=== PATIENT | male | born 1950 | race Caucasian/White ===

== ENCOUNTER 2018-05-28 15:16 | Inpatient (IN) | payer OTHER ==
[~2018-05-28] VITALS: Ht 175.3 cm; Wt 105.2 kg
[2018-05-28 15:33] VITALS: BP 132/85
[2018-05-28] MEDS ORDERED: NEXIUM40 MG PO (15:38)
[2018-05-28] MEDS ORDERED: LISINOPRIL20 MG PO (15:38)
[2018-05-28] MEDS ORDERED: HYDROCHLOROTH12.5 M1 PO (15:38)
[2018-05-28 17:16] LABS: ABSOLUTE NEUTROPHILS 9.3 thou/uL (1.4-8.2); BASOPHILS 0.3 % (0.0-2.0); HEMATOCRIT 45.8 % (42.0-52.0); HEMOGLOBIN 15.7 gm/dL (14.0-18.0); LYMPHOCYTES 26.4 % (24.0-44.0); MCH 31.1 pg (26.0-34.0); MCHC 34.2 g/dL (28.0-37.0); MONOCYTES 7.6 % (1.0-8.0); PLATELET COUNT 363 thou/uL (150-400); POLYS 63.7 % (36.0-66.0); RBC 5.03 mil/uL (4.50-6.00); RDW 12.7 % (10.5-14.5); WBC 14.6 thou/uL (4.0-11.0)
[2018-05-28 17:17] LABS: URINE BILIRUBIN NEGATIVE (Negative); URINE BLOOD TRACE (Negative); URINE CLARITY CLEAR; URINE COLOR YELLOW; URINE GLUCOSE-RANDOM* NEGATIVE (Negative); URINE KETONES NEGATIVE (Negative); URINE LEUKOCYTES NEGATIVE (Negative); URINE NITRITE NEGATIVE (Negative); URINE PROTEIN (DIPSTICK) NEGATIVE (Negative); URINE SPECIFIC GRAVITY <= 1.005 (1.005-1.035); URINE UROBILINOGEN 0.2 E.U./dl (0.2-1.0)
[2018-05-28 17:20] LABS: CALCIUM 9.2 mg/dL (8.5-10.1); POTASSIUM 4.1 mmol/L (3.5-5.1)
[2018-05-28 17:26] LABS: ALBUMIN 3.8 g/dL (3.4-5.0); TOTAL BILIRUBIN 0.4 mg/dL (<0.1-1.0); TOTAL PROTEIN 7.5 g/dL (6.4-8.2)
[2018-05-28 20:26] VITALS: BP 103/74
[2018-05-28 20:30] VITALS: BP 118/80
[2018-05-29 00:18] VITALS: BP 114/78
[2018-05-29 03:55] VITALS: BP 102/64
[2018-05-29 05:32] LABS: HEMATOCRIT 39.1 % (42.0-52.0); MCH 30.7 pg (26.0-34.0); MCHC 33.5 g/dL (28.0-37.0); MCV 91.6 fL (80.0-100.0); RBC 4.27 mil/uL (4.50-6.00); RDW 12.3 % (10.5-14.5); WBC 12.6 thou/uL (4.0-11.0)
[2018-05-29 05:34] LABS: CALCIUM 8.1 mg/dL (8.5-10.1); CREATININE 0.9 mg/dL (0.7-1.3); POTASSIUM 3.8 mmol/L (3.5-5.1)
[2018-05-29 05:43] LABS: HEMOGLOBIN 13.1 gm/dL (14.0-18.0)
[2018-05-29 07:10] VITALS: BP 104/59
[2018-05-29] MEDS ORDERED: BACTRIM DS TAB1 EACH PO (12:52)
[2018-05-29] MEDS ORDERED: FLAGYL500 M1 PO (12:52)
[2018-05-29 15:28] VITALS: BP 104/59
== END 2018-05-29 15:50 | disposition home or self-care (01) | DRG 392 ==
LOC: ER 15:16 → EROBS 18:46 → 4W 20:27
PROVIDERS: Nurse Practitioner Family; Physician Assistant
DX: K57.32 Diverticulitis of large intestine without perforation or abscess without bleeding (principal); I10 Essential (primary) hypertension; K21.9 Gastro-esophageal reflux disease without esophagitis; K59.09 Other constipation; R13.10 Dysphagia, unspecified; Z90.49 Acquired absence of other specified parts of digestive tract; Z79.899 Other long term (current) drug therapy; Z86.010 Personal history of colon polyps; Z85.828 Personal history of other malignant neoplasm of skin
CPT/HCPCS: 10045; 10047

== ENCOUNTER 2019-04-01 10:14 | Emergency (ER) | payer OTHER ==
[~2019-04-01] VITALS: Ht 175.3 cm; Wt 82.6 kg
[~2019-04-01 10:14] MED LIST: BACTRIM DS TAB1 EACH PO; FLAGYL500 M1 PO; HYDROCHLOROTH12.5 M1 PO; LISINOPRIL20 MG PO; NEXIUM40 MG PO
[2019-04-01] MEDS ORDERED: BETAMETHASONE D15 G6 TOP (10:24)
[2019-04-01 10:29] LABS: ABSOLUTE NEUTROPHILS 3.4 thou/uL (1.4-8.2); BASOPHILS 1.2 % (0.0-2.0); EOSINOPHILS 3.6 % (0.0-3.0); HEMATOCRIT 44.4 % (42.0-52.0); HEMOGLOBIN 15.3 gm/dL (14.0-18.0); LYMPHOCYTES 44.6 % (24.0-44.0); MCH 32.1 pg (26.0-34.0); MCHC 34.5 g/dL (28.0-37.0); MCV 93.1 fL (80.0-100.0); PLATELET COUNT 248 thou/uL (150-400); POLYS 42.6 % (36.0-66.0); RBC 4.77 mil/uL (4.50-6.00); RDW 12.9 % (10.5-14.5); WBC 7.9 thou/uL (4.0-11.0)
[2019-04-01 10:35] LABS: ANION GAP 9 mmol/L (7-16); BUN 12 mg/dL (7-18); CALCIUM 8.9 mg/dL (8.5-10.1); CHLORIDE 103 mmol/L (98-107); CO2 27 mmol/L (21-32); GLUCOSE 117 mg/dL (74-106); POTASSIUM 3.9 mmol/L (3.5-5.1); SODIUM 139 mmol/L (136-145)
[2019-04-01 10:46] LABS: ALBUMIN 3.6 g/dL (3.4-5.0); SGOT 23 U/L (15-37); SGPT 28 U/L (30-65); TOTAL BILIRUBIN 0.4 mg/dL (<0.1-1.0); TROPONIN-I <0.06 ng/mL (<0.06)
[2019-04-01 11:46] VITALS: BP 122/71
--- NOTE | 2019-04-01 11:53 | EKG ---
[address] [address] ELECTROCARDIOGRAM REPORT Name: JENNIFERGODWIN Sergey Room #: DEP [facility]#: [id number] Admission: 04/01/19 Attend Phys: Discharge: 04/01/19 Date of : 54 Report #: [id number] THIS REPORT FOR: //name// [facility] ED Test Date: 2019-04-01 Test Time: 10:19:13 Pat Name: GODWIN RODRIGUEZ Department: Room: Gender: M [employer]ognos Architect: HARRIETT : 1950 Requested By: Christopher Ba Order Number: [id number] MD: Irwin Francis Measurements Intervals [place] Rate: 84 P: 58 [place]: 164 QRS: -39 QRSD: 126 T: 19 QT: 400 QTc: 473 Interpretive Statements Sinus rhythm Right ventricular conduction delay Baseline wander in lead(s) V1,V4 No previous ECG available for comparison Electronically Signed On 04-01-2019 11:53:39 CDT by Irwin Francis [email or web address] <ELECTRONICALLY SIGNED> By: Irwin Francis MD, [facility] 04/01/19 [id number] Irwin Francis MD, FACC /EPI
== END 2019-04-01 11:48 | disposition home or self-care (01) ==
LOC: ER 10:14
PROVIDERS: Emergency Medicine
DX: R07.89 Other chest pain (principal); I10 Essential (primary) hypertension; Z90.49 Acquired absence of other specified parts of digestive tract

== ENCOUNTER → 2019-06-19 | Outpatient (CLI) | payer OTHER ==
[~2019-06-19] MED LIST changes: +BETAMETHASONE D15 G6 TOP
== END ==
LOC: CAT 09:09
DX: K76.0 Fatty (change of) liver, not elsewhere classified (principal); K44.9 Diaphragmatic hernia without obstruction or gangrene; K40.90 Unilateral inguinal hernia, without obstruction or gangrene, not specified as recurrent; M41.85 Other forms of scoliosis, thoracolumbar region

== ENCOUNTER 2019-10-28 07:25 | Emergency (ER) | payer OTHER ==
[~2019-10-28] VITALS: Ht 172.7 cm; Wt 83.9 kg
[2019-10-28 08:50] VITALS: BP 138/87
== END 2019-10-28 08:54 | disposition home or self-care (01) ==
LOC: ER 07:25
DX: L30.9 Dermatitis, unspecified (principal); I10 Essential (primary) hypertension; Z90.49 Acquired absence of other specified parts of digestive tract; Z98.890 Other specified postprocedural states; Z79.899 Other long term (current) drug therapy